=== PATIENT | female | born 1970 | race Caucasian/White ===

== ENCOUNTER 2018-08-04 13:07 | Emergency (ER) | payer OTHER ==
[~2018-08-04] VITALS: Ht 160 cm; Wt 104.3 kg
[~2018-08-04 13:07] MED LIST: AGGRENOX 25 MG-1 CAP PO; AMITRIPTYLINE H10 MG PO; DIVALPROEX SOD500 MG PO; DURAGESIC1 EAC1 TOP; FERROUS SULFAT325 MG PO; HYDROCODON-ACE1 EAC9 PO; METAXALONE800 MG PO; METOPROLOL TART25 MG PO; NEXIUM40 MG PO; SIMVASTATIN20 MG PO; TRAMADOL-ACETAMI1 EA PO; ULTRAM 50MG50 MG PO; ZOLPIDEM TARTRA10 MG PO
--- OUTSIDE RECORDS SUMMARY | 2018-08-04 13:10 | XMS REPORT ---
Author Author [facility] Address Unknown Phone Unavailable Care Team Providers Care Accident Report Clerk Name Role Phone Unavailable Unavailable Payers Payer Name Policy Type Policy Number Effective Date Expiration Date Problems This patient has no known problems. Allergies, Adverse Reactions, Alerts Allergy Name Allergy Type Status Severity Reaction(s) Onset Date Inactive Date Treating Clinician Comments No Known Allergies DA Active U 2016-07-15 00:00:00 Medications This patient has no known medications.
[2018-08-04] MEDS ORDERED: HYDROCODONE/APAP 7.5MG-325MG 1 EA TAB PO PRN (13:15)
[2018-08-04] MEDS ORDERED: ONDANSETRON HCL 4 MG ORAL DISINTEGRATING TAB PO ONE (13:30)
--- NOTE | 2018-08-04 15:15 | Diagnostic Imaging Report ---
RIGHT HAND - 3 Images RIGHT WRIST - 3 Images HISTORY: Pain, fell, broken wrist COMPARISON: None available. FINDINGS: Bones: A comminuted, intra-articular, mildly impacted, dorsally angulated fracture of the distal radius. A nondisplaced oblique fracture through the base of the ulnar styloid process. Questionable subtle irregular linear lucency at the junction of the distal pole and waist of the scaphoid. Joints: Mild degenerative changes of the first carpometacarpal joint. Soft tissues: Regional soft tissue swelling. IMPRESSION: 1. Acute, comminuted, intra-articular fracture of the distal radius. 2. Nondisplaced fracture through the base of the ulnar styloid process. 3. Question findings which could reflect a nondisplaced scaphoid fracture. Signed by: Dr. Vikash Graves D.O., M.M.M. on 08/04/2018 3:12 PM
--- NOTE | 2018-08-04 15:31 | NUR ---
REVERSE TAPAN STALLINGS WITH SLING BY AIDAN. +PMS BEFORE AND AFTER PLACEMENT.
== END 2018-08-04 15:51 | disposition home or self-care (01) ==
LOC: ER 13:07
DX: S52.351A Displaced comminuted fracture of shaft of radius, right arm, initial encounter for closed fracture (principal); I25.10 Atherosclerotic heart disease of native coronary artery without angina pectoris; R01.1 Cardiac murmur, unspecified; M54.9 Dorsalgia, unspecified; G89.29 Other chronic pain; I25.2 Old myocardial infarction
CPT/HCPCS: 29125; 73110; 73130; 99284; Q0162

== ENCOUNTER → 2018-08-17 | Day surgery (SDC) | payer OTHER ==
[~2018-08-17] MED LIST changes: +ACETAMINOPHEN/CODEINE 300MG - 30MG TAB ONE; +BACITRACIN 50,000 UNIT VIAL ONE; +BACITRACIN ZINC 15 GM OINT ONE; +CEFAZOLIN SOD 1 GM/NS 50ML 50 ML IV ONE; +DEXAMETHASONE SOD PHOS INJ 4 MG/ML VIAL ONE; +FENTANYL CITRATE/PF 100MCG/2 ML INJ ONE; +IBUPROFEN200 MG PO; +LIDOCAINE HCL 2% LOCAL INJ 5 ML SDV VIAL INJ ONE; +METHOCARBAMOL750 MG PO; +METOCLOPRAMIDE HCL 10 MG/2ML VIAL ONE; +MIDAZOLAM HCL 2 MG/2 ML VIAL ONE; +ONDANSETRON HCL INJ 2MG/ML 2ML 2 MG/ML VIAL ONE; +ONDANSETRON PO; +PROMETHAZINE HCL (IM) 25 MG/ML VIAL ONE; +PROPOFOL IV EMULSION 10 MG/ML 20 ML VIAL ONE; +ROPIVACAINE 0.5% 5 MG/ML 30 ML SDV ONE; +SEVOFLURANE INHAL SOLN 250 ML PEN BTL ONE; +TOPAMAX25 MG PO
[2018-08-17 10:40] VITALS: BP 95/57
--- NOTE | 2018-08-17 14:18 | Operative Report ---
DATE OF PROCEDURE: 08/17/2018 SURGEON: Barry Kinsey MD BUILDING MAINTENANCE WORKER: Jacob Kerr PA-C. PREOPERATIVE DIAGNOSIS: Displaced right distal radius fracture. POSTOPERATIVE DIAGNOSIS: Displaced right distal radius fracture. PROCEDURE: Open reduction and internal fixation of right distal radius. INDICATIONS: The patient is a 47-year-old lady, who has a displaced right distal radius fracture. We have discussed the findings and options with the patient. We plan on open reduction with internal fixation using a volar plate. The risks and benefits have been explained. She states she understands and wishes to proceed. PROCEDURE IN DETAIL: The patient was brought to the operating room and placed under general anesthetic. She received a regional block in the holding area. Her right upper extremity was prepped and draped in a sterile manner. A preoperative time-out was performed. The extremity was exsanguinated and a proximal tourniquet was briefly inflated to 250 mmHg. A volar approach was made to the right distal radius. This was carried through the floor of the flexor carpi radialis tendon sheath. Hemostasis was obtained with electrocautery. The distal fracture site was carefully exposed. The brachioradialis insertion was released off the radial styloid. The fracture was carefully reduced. A [employer] volar locking plate was then placed into the distal radius. Appropriate positioning was confirmed with a C-arm image intensifier. This was locked into place using a combination of compression and locking screws. Intraoperative x-rays confirmed a near anatomic reduction and good positioning of the hardware. The wound was carefully irrigated. The tissue was reapproximated with subcuticular Vicryl and nylon stitches. A sterile bandage and a sugar-tong splint were applied. The patient was extubated and transported to the recovery room in stable condition. There was no blood loss and all needle and sponge counts were correct. Barry Kinsey MD DR/BRANDI /[id number]
== END | disposition home or self-care (01) ==
LOC: OR 06:50
PROVIDERS: ATTEND Specialist
DX: S52.501A Unspecified fracture of the lower end of right radius, initial encounter for closed fracture (principal); W18.39XD Other fall on same level, subsequent encounter; K21.9 Gastro-esophageal reflux disease without esophagitis; Z96.653 Presence of artificial knee joint, bilateral
CPT/HCPCS: 76000; 81025; C1713; J0690; J1100; J2001; J2250; J2405; J2550; J2765; J2795

== ENCOUNTER → 2019-05-03 | Day surgery (SDC) | payer OTHER ==
[~2019-05-03] MED LIST changes: -ACETAMINOPHEN/CODEINE 300MG - 30MG TAB ONE; -BACITRACIN 50,000 UNIT VIAL ONE; -BACITRACIN ZINC 15 GM OINT ONE; +HYDROCODONE/APAP 10MG-325MG TAB ONE; +HYDROMORPHONE 1MG/1ML INJ ONE; +KETOROLAC TROMETHAMINE 30 MG/ML VIAL ONE; -METOCLOPRAMIDE HCL 10 MG/2ML VIAL ONE; -PROMETHAZINE HCL (IM) 25 MG/ML VIAL ONE; -ROPIVACAINE 0.5% 5 MG/ML 30 ML SDV ONE
[2019-05-03 09:32] VITALS: BP 110/62
--- NOTE | 2019-05-03 10:27 | Operative Report ---
DATE OF PROCEDURE: 05/03/2019 SURGEON: Barry Kinsey MD RIB CLOTH KNITTER: Jacob Kerr, certified PA. PREOPERATIVE DIAGNOSIS: Posttraumatic carpal tunnel syndrome, right wrist. POSTOPERATIVE DIAGNOSIS: Posttraumatic carpal tunnel syndrome, right wrist. PROCEDURE: Right endoscopic carpal tunnel release. INDICATIONS: The patient is a 48-year-old lady, who is approaching one year status post an ORIF of her right distal radius. She has had a persistent and severe symptoms consistent with posttraumatic carpal tunnel syndrome since her fracture. She has failed conservative management and would like to proceed with an endoscopic versus open carpal tunnel release. The risks and benefits were explained. She stated she understood and wished to proceed. PROCEDURE IN DETAIL: The patient was brought to the operating room and placed under general anesthetic. Her right upper extremity was prepped and draped in a sterile manner. A preoperative time-out was performed. The extremity was exsanguinated and a proximal tourniquet was inflated to 250 mmHg. An incision was made over the flexion crease of the right wrist. The palmaris longus was retracted to the radial side of the wound. The flexor retinaculum was elevated and incised with a pair of tenotomy scissors. An elevator was used to tease the tenosynovium off the undersurface of the transverse carpal ligament. Dilators were placed and the hook of the hamate was palpated. The MicroAire endoscope was placed into the carpal tunnel. The undersurface of the transverse carpal ligament was cleanly visualized without evidence of soft tissue interposition. The carpal tunnel was very tight. The knife was deployed and the ligament was cut from distal to proximal. A full-thickness cut was noted. The proximal retinaculum was also thickened and tight. This was released with a pair of tenotomy scissors under direct visualization. The wound was closed with two interrupted nylon stitches. A sterile bandage was applied. The patient was extubated and transported to the recovery room in stable condition. There was no blood loss and all needle and sponge counts were correct. Barry Kinsey MD DR/BRANDI /[id number]
== END | disposition home or self-care (01) ==
LOC: OR 05:31
PROVIDERS: ATTEND Specialist
DX: G56.01 Carpal tunnel syndrome, right upper limb (principal); Z87.81 Personal history of (healed) traumatic fracture; M54.9 Dorsalgia, unspecified; Z01.810 Encounter for preprocedural cardiovascular examination
CPT/HCPCS: 29848; 81025; 93005; J0690; J1100; J1170; J1885; J2001; J2250; J2405; J2704; J3010

== ENCOUNTER → 2023-11-20 | Day surgery (SDC) | payer BC, OTHER ==
[~2023-11-20] MED LIST changes: +ACETAMINOPHEN 1000 MG/100 ML IV ONE; +BUPIVACAINE HCL 0.5% INJ 30 ML VIAL INJ ONE; -CEFAZOLIN SOD 1 GM/NS 50ML 50 ML IV ONE; +DEXAMETHASONE SOD PHOS INJ 4 MG/ML SDV ONE; -DEXAMETHASONE SOD PHOS INJ 4 MG/ML VIAL ONE; -HYDROCODONE/APAP 10MG-325MG TAB ONE; +HYDROCODONE/APAP 7.5MG-325MG 1 EA TAB ONE; -HYDROMORPHONE 1MG/1ML INJ ONE; -MIDAZOLAM HCL 2 MG/2 ML VIAL ONE
[2023-11-20] MEDS: LACTATED RINGER'S 1,000 ML ONE (06:24)
[2023-11-20 06:40] LABS: ANION GAP 11.9 mmol/L (8-16); CALCIUM 8.6 mg/dL (8.4-10.2); CREATININE, SERUM 0.72 mg/dL (0.57-1.11); POTASSIUM 3.9 mmol/L (3.5-5.1)
[2023-11-20] MEDS: CEFAZOLIN SODIUM 2 GM ONE (06:47)
[2023-11-20 08:03] VITALS: TEMP 97.7
[2023-11-20] MEDS: FENTANYL CITRATE/PF 100MCG/2 ML INJ IV ONE (08:18)
[2023-11-20] MEDS: HYDROCODONE/APAP 7.5MG-325MG 1 EA TAB PO ONE (08:43)
[2023-11-20 09:10] VITALS: BP 123/74; PULSE 61; RESP 18; O2SAT 99
== END | disposition home or self-care (01) ==
LOC: OR 05:20
PROVIDERS: ATTEND Podiatrist Foot & Ankle Surgery
DX: S92.351A Displaced fracture of fifth metatarsal bone, right foot, initial encounter for closed fracture (principal); X58.XXXA Exposure to other specified factors, initial encounter; Z01.810 Encounter for preprocedural cardiovascular examination
CPT/HCPCS: 28485; 36415; 71046; 80048; 81025; 93005; C1713 ×5; J0131; J1100; J1885; J2001; J2405; J2704; J3010; J7121